=== PATIENT | female | born 1995 | race African-American/Black ===

== ENCOUNTER 2016-11-07 19:16 | Emergency (ER) | payer MEDICAID ==
[~2016-11-07] VITALS: Ht 162.6 cm; Wt 79.4 kg
[~2016-11-07 19:16] MED LIST: IRONTAB35
[2016-11-07 19:20] VITALS: BP 120/82
[2016-11-07] MEDS ORDERED: ACETAMINOPHEN 325 MG TAB PO ONE (19:45)
[2016-11-07 20:26] LABS: Basophils # (auto) 0 uL; Basophils % (auto) 0.3 % (0.0-2.0); Eosinophils # (auto) 0 uL; Eosinophils % (auto) 0.3 % (0.0-7.0); Hematocrit 34.2 % (36.0-46.0); Hemoglobin 11.7 g/dL (12.2-16.2); Lymphocytes # (auto) 1.5 uL; Lymphocytes % (auto) 12.2 % (10.0-50.0); Mean Corpuscular Hemoglobin 29.9 pg (28.0-32.0); Mean Corpuscular Hgb Conc. 34.2 g/dL (32.0-36.0); Mean Corpuscular Volume 87.3 fL (80.0-100.0); Mean Platelet Volume 8.9 fL (7.4-10.4); Monocytes # (auto) 0.9 uL; Monocytes % (auto) 7.5 % (0.0-12.0); Neutrophils # (auto) 9.6 uL; Neutrophils % (auto) 79.7 % (37.0-80.0); Platelet Count (auto) 248 10^3/uL (140-450); Red Cell Distribution Width 13.1 % (11.6-16.0); White Blood Cell 12.1 10^3/uL (4.4-10.8)
[2016-11-07 20:51] LABS: Albumin 3.1 g/dL (3.4-5.0); BUN/Creatinine Ratio 7.1; Calcium 8.8 mg/dL (8.5-10.1); Potassium 3.8 mmol/L (3.5-5.1)
[2016-11-07 20:55] LABS: Bilirubin, Total 0.4 mg/dL (0.2-1.0); Total Protein 7.6 g/dL (6.4-8.2)
[2016-11-07] MEDS ORDERED: methylPREDNISolone SOD SUCC 125 MG/2 ML VL IM ONE (21:00)
[2016-11-07] MEDS ORDERED: cefTRIAXone SOD 1,000 MG VL IM ONE (21:00)
== END 2016-11-07 21:43 | disposition home or self-care (01) ==
LOC: ER 19:20
DX: J20.9 Acute bronchitis, unspecified (principal); F17.210 Nicotine dependence, cigarettes, uncomplicated; F12.10 Cannabis abuse, uncomplicated; D25.9 Leiomyoma of uterus, unspecified
CPT/HCPCS: 36415; 80053; 82150; 83690; 85025; 96372; 99284; J0696; J2930

== ENCOUNTER 2016-12-27 07:16 | Emergency (ER) | payer MEDICAID ==
[~2016-12-27] VITALS: Ht 167.6 cm; Wt 81.6 kg
[2016-12-27] MEDS ORDERED: HYDROmorphone HCL 2 MG/ML VL IM ONE (07:45)
[2016-12-27] MEDS ORDERED: ONDANSETRON HCL 4 MG/2 ML VIAL IM ONE (07:45)
[2016-12-27 08:16] LABS: Urine Bilirubin Negative (Negative); Urine Color Yellow (Yellow); Urine Glucose Normal (Normal); Urine Ketone Negative (Negative); Urine Nitrite Negative (Negative); Urine RBC 95 /hpf (0 - 4); Urine Squamous Epithelial Cell FEW /hpf (<5); Urine Urobilinogen Normal (Negative); Urine pH 5.5 (5.0-8.0)
[2016-12-27 08:17] LABS: Urine Blood 3+ /uL (Negative)
[2016-12-27 08:56] VITALS: BP 112/66
== END 2016-12-27 08:57 | disposition home or self-care (01) ==
LOC: ER 07:16
DX: N39.0 Urinary tract infection, site not specified (principal); D25.1 Intramural leiomyoma of uterus; F17.210 Nicotine dependence, cigarettes, uncomplicated; F12.10 Cannabis abuse, uncomplicated
CPT/HCPCS: 81001; 81025; 96372; 99284; J1170; J2405

== ENCOUNTER 2018-12-23 11:45 | Emergency (ER) | payer MEDICAID ==
[~2018-12-23] VITALS: Ht 165.1 cm; Wt 83.9 kg
[2018-12-23 11:57] VITALS: BP 115/68
[2018-12-23 12:34] LABS: Urine Bacteria NONE SEEN /hpf (None Seen); Urine Blood 2+ /uL (Negative); Urine Mucus FEW (None Seen); Urine Specific Gravity 1.022 (1.001-1.035); Urine WBC 18 /hpf (0 - 5)
[2018-12-23] MEDS ORDERED: KETOROLAC TROMETH 60MG/2ML VIAL IM ONE (14:15)
== END 2018-12-23 17:31 | disposition home or self-care (01) ==
LOC: ER 11:55
DX: N39.0 Urinary tract infection, site not specified (principal); F17.210 Nicotine dependence, cigarettes, uncomplicated; F12.90 Cannabis use, unspecified, uncomplicated
CPT/HCPCS: 74176; 81001; 81025; 96372; 99284; J1885

== ENCOUNTER 2023-02-06 08:39 | Emergency (ER) | payer MEDICAID ==
[~2023-02-06] VITALS: Ht 165.1 cm; Wt 95.4 kg
[2023-02-06 09:33] LABS: Urine Bacteria FEW /hpf (None Seen); Urine Blood Negative /uL (Negative); Urine Clarity Clear (Clear); Urine Color Yellow (Yellow); Urine Mucus FEW (None Seen); Urine Protein, UAD Negative (Negative); Urine Specific Gravity 1.017 (1.001-1.035); Urine Urobilinogen Normal (Negative); Urine WBC 1 /hpf (0 - 5); Urine pH 5.5 (5.0-8.0)
[2023-02-06 09:42] LABS: Basophils # (auto) 0.2 10 ^3/uL (0-0.2); Basophils % (auto) 1.4 % (0.0-2.0); Eosinophils # (auto) 0.1 10 ^3/uL (0-0.8); Eosinophils % (auto) 0.8 % (0.0-7.0); Hematocrit 36.7 % (36.0-46.0); Hemoglobin 12.4 g/dL (12.2-16.2); Lymphocytes # (auto) 1.6 10 ^3/uL (0.4-5.4); Mean Corpuscular Hemoglobin 30.2 pg (28.0-32.0); Mean Corpuscular Hgb Conc. 33.7 g/dL (32.0-36.0); Mean Corpuscular Volume 89.5 fL (80.0-100.0); Monocytes # (auto) 0.4 10 ^3/uL (0-1.3); Monocytes % (auto) 3.3 % (0.0-12.0); Neutrophils % (auto) 82.5 % (37.0-80.0); Nucleated Red Blood Cells % 0.1 %; Red Cell Distribution Width 13.2 % (11.8-14.3); White Blood Cell 13.4 10^3/uL (4.4-10.8)
[2023-02-06 10:20] LABS: Alanine Aminotransferase 17 U/L (7-40); Albumin 4.3 g/dL (3.2-4.8); Alkaline Phosphatase 87 U/L (46-116); Amylase 65 U/L (30-118); Anion Gap 5.4 (5-15); Aspartate Aminotransferase 8 U/L (13-40); BUN/Creatinine Ratio 10.4 (10.0-20.0); Bilirubin, Total 0.3 mg/dL (0.2-1.0); Blood Urea Nitrogen 10 mg/dL (9-23); Calcium 9.2 mg/dL (8.5-10.1); Carbon Dioxide 24.6 mmol/L (20-30); Chloride 109 mmol/L (98-107); Glucose 133 mg/dL (74-106); Lipase 36 U/L (12-53); Potassium 3.8 mmol/L (3.5-5.1); Sodium 139 mmol/L (136-145); Total Protein 7.1 g/dL (5.7-8.2)
[2023-02-06] MEDS ORDERED: CEPH250C PO (11:42)
[2023-02-06 12:48] VITALS: BP 129/93; PULSE 74; RESP 18; TEMP 98.9; O2SAT 98
== END 2023-02-06 12:49 | disposition home or self-care (01) ==
LOC: ER 08:39
DX: R10.9 Unspecified abdominal pain (principal); R10.2 Pelvic and perineal pain; R11.2 Nausea with vomiting, unspecified; F17.210 Nicotine dependence, cigarettes, uncomplicated; Z86.2 Personal history of diseases of the blood and blood-forming organs and certain disorders involving the immune mechanism; Z79.899 Other long term (current) drug therapy
CPT/HCPCS: 36415; 74176; 80053; 81001; 82150; 83690; 84702; 85025

== ENCOUNTER 2024-04-19 09:22 | Emergency (ER) | payer MEDICAID ==
[~2024-04-19] VITALS: Ht 165.1 cm; Wt 86.5 kg
[~2024-04-19 09:22] MED LIST changes: +CEPH250C PO
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
[2024-04-19] MEDS ORDERED: ACET-1080 PO (10:31)
[2024-04-19] MEDS: ACETAMINOPHEN 500 MG TAB PO ONE (10:37)
[2024-04-19 10:43] VITALS: BP 120/90; PULSE 76; RESP 20; TEMP 98.1; O2SAT 98
== END 2024-04-19 10:44 | disposition home or self-care (01) ==
LOC: ER 09:22
DX: S83.8X1A Sprain of other specified parts of right knee, initial encounter (principal); F17.210 Nicotine dependence, cigarettes, uncomplicated; F15.90 Other stimulant use, unspecified, uncomplicated; Z86.2 Personal history of diseases of the blood and blood-forming organs and certain disorders involving the immune mechanism; Z79.899 Other long term (current) drug therapy; X58.XXXA Exposure to other specified factors, initial encounter; Y93.89 Activity, other specified; Y92.89 Other specified places as the place of occurrence of the external cause; Y99.8 Other external cause status
CPT/HCPCS: 73564

== ENCOUNTER 2024-05-28 07:31 | Emergency (ER) | payer MEDICAID ==
[~2024-05-28] VITALS: Ht 162.6 cm; Wt 99.3 kg
[~2024-05-28 07:31] MED LIST changes: +ACET-1080 PO
[2024-05-28 08:40] VITALS: BP 128/86; PULSE 80; RESP 16; TEMP 97.6; O2SAT 100
[2024-05-28 09:08] LABS: Urine Bacteria FEW /hpf (None Seen); Urine Blood Negative /uL (Negative); Urine Clarity Turbid (Clear); Urine Mucus FEW (None Seen); Urine Protein, UAD TRACE (Negative); Urine Specific Gravity 1.018 (1.001-1.035); Urine Urobilinogen Normal (Negative); Urine WBC 8 /hpf (0 - 5); Urine pH 5.5 (5.0-9.0)
[2024-05-28 09:09] LABS: Urine Color Yellow (Yellow)
--- NOTE | 2024-05-28 09:13 | ED.PDOC ---
GI ASSESSMENT HPI Comments 29 Y F, with PMHX of anemia, presents to the ED with CC of nausea/vomiting. Patient states that she has been nausea and vomiting for 2 days with associated symptoms of cough, and body aches which have persisted for 1 month. Patient relays that she has been using mucienx at home with no relief. Patient states that she suspects but is unsure. Patient denies fever, chills, nasal wr2wsssweut, or headache. Chief Complaint: Nausea/Vomiting Time Seen by MD: 08:10 Primary Care Provider: KUSUM Reviewed Notes: Nurses Notes, Medications, Allergies Allergies: Coded Allergies: NO KNOWN ALLERGIES (Unverified , 07/13/10) Home Meds Active Scripts Acetaminophen (Tylenol 8 Hour Arthritis) 650 Mg Tab, 650 MG PO TID, #30 TAB Prov:NANCY EDUARDO 04/19/24 Cephalexin (KEFLEX CAPSULE) 250 Mg Cp, 500 MG PO TID for 5 Days, #15 BOTTLE Prov:OSCAR ANDERSON MD 02/06/23 Reported Medications [Iron] (IRON) No Conflict Check 07/13/10 Information Source: Patient Mode of Arrival: Ambulatory Timing: Months Duration: Since onset Vomitus: Watery Stool: Watery Severity: Mild Recent: None Recent Hx of: None Pain Location: None Modifying Factors: Nothing Associated sign and symptoms: None Past Medical History PAST MEDICAL HISTORY: Anemia Surgical History: Denies all surgeries BARKER PEELER History: No Pertinent BARKER PEELER History, Uterine Fibroids Family History Family History: Reviewed,noncontributory to illness Social History Smoker: Cigarettes, Greater Than 1 Pack/Day Alcohol: Occasionally Drugs: Marijuana Lives In: Home Constitutional: denies: chills, diaphoresis, fatigue, fever, malaise, sweats, weakness, others EENTM: denies: blurred vision, double vision, ear bleeding, ear discharge, ear drainage, ear pain, ear ringing, eye pain, eye redness, hearing loss, mouth pain, mouth swelling, nasal discharge, nose bleeding, nose congestion, nose pain, photophobia, tearing, throat pain, throat swelling, voice changes, others Respiratory: reports: cough; denies: hemoptysis, orthopnea, SOB at rest, shortness of breath, SOB with excertion, stridor, wheezing, others Cardiovascular: denies: chest pain, dizzy spells, diaphoresis, Dyspnea on exertion, edema, irregular heart beat, left arm pain, lightheadedness, palpitations, PND, syncope, others Gastrointestinal: reports: nausea, vomiting; denies: abdomen distended, abdominal pain, blood streaked bowels, constipated, diarrhea, dysphagia, difficulty swallowing, hematemesis, melena, poor appetite, poor fluid intake, rectal bleeding, rectal pain, others Genitourinary: denies: abnormal vagina bleeding, burning, dyspareunia, dysuria, flank pain, frequency, hematuria, incontinence, pain, , vagina discharge, urgency, others Neurological: denies: dizziness, fainting, headache, left sided numbness, left sided weakness, numbness, paresthesia, pre-existing deficit, right sided numbness, right sided weakness, seizure, speech problems, tingling, tremors, weakness, others Musculoskeletal: reports: back pain, others (body aches ); denies: gout, joint pain, joint swelling, muscle pain, muscle stiffness, neck pain Integumetry: denies: bruises, change in color, change in hair/nails, dryness, laceration, lesions, lumps, rash, wounds, others Allergic/Immunocompromised: denies: Difficulty Healing, Frequent Infections, Hives, Itching, others Hematologic/Lymphatic: denies: anemia, blood clots, easy bleeding, easy bruising, swollen glands, others Endocrine: denies: excessive hunger, excessive sweating, excessive thirst, excessive urination, flushing, intolerance to cold, intolerance to heat, u nexplained weight gain, unexplained weight loss, others Psychiatric: denies: anxiety, bipolar disorder, depression, hopeless, panic disorder, schizophrenia, sleepless, suicidal, others All Other Systems: Reviewed and Negative Physical Exam General Appearance: No Apparent Distress, Normal HEENT: Normal ENT Inspection, Pharynx Normal, TMs Normal Neck: Full Range of Motion, Non-Tender, Normal, Normal Inspection Respiratory: Chest Non-Tender, Lungs Clear, No Accessory Muscle Use, No Respiratory Distress, Normal Breath Sounds Cardiovascular: No Edema, No JVD, No Murmur, No Gallop, Normal Peripheral P ulses, Regular Rate/Rhythm Breast Exam: Deferred Gastrointestinal: No Organomegaly, Non Tender, No Pulsatile Mass, Normal Bowel Sounds, Soft Genitalia: Deferred Pelvic: Deferred Rectal: Deferred Extremities: No calf tenderness, Normal capillary refill, Normal inspection, Normal range of motion, Non-tender, No pedal edema Musculoskeletal : Apperance: Normal Neurologic: Alert, gage maker II-XII nml as Tested, No Motor Deficits, Normal Affect, Normal Mood, No Sensory Deficits Cerebellar Function: Normal Reflexes: Normal Skin: Dry, Normal Color, Warm Lymphatic: No Adenopathy Was a procedure done? Was a procedure done?: No GI differential Dx Differential Diagnosis: Gastritis/PUD, Gastroenteritis, Electrolyte Imbalance, Food Poisoning, , Bacterial, Viral X-Ray, Labs, Meds, VS Vital Signs Date Time Temp Pulse Resp B/P (MAP) Pulse Ox O2 Delivery O2 Flow Rate FiO2 05/28/24 08:40 97.6 80 16 128/86 (100) 100 97.6 05/28/24 07:37 98.0 94 18 118/74 (89) 99 Lab Test 05/28/24 09:37 05/28/24 07:45 Range/Units White Blood Count 15.9 H 4.4-10.8 10^3/uL Red Blood Count 4.43 4.0-5.20 10^6/uL Hemoglobin 13.4 12.2-16.2 g/dL Hematocrit 39.7 36.0-46.0 % Mean Corpuscular Volume 89.6 80.0-100.0 fL Mean Corpuscular Hemoglobin 30.3 28.0-32.0 pg Mean Corpuscular Hemoglobin Concent 33.8 32.0-36.0 g/dL Red Cell Distribution Width 13.1 11.8-14.3 % Platelet Count 357 140-450 10^3/uL Mean Platelet Volume 8.4 6.9-10.8 fL Neutrophils (%) (Auto) 74.6 37.0-80.0 % Lymphocytes (%) (Auto) 19.3 10.0-50.0 % Monocytes (%) (Auto) 4.8 0.0-12.0 % Eosinophils (%) (Auto) 0.7 0.0-7.0 % Basophils (%) (Auto) 0.6 0.0-2.0 % Neutrophils # (Auto) 11.9 H 1.6-8.6 10 ^3/uL Lymphocytes # (Auto) 3.1 0.4-5.4 10 ^3/uL Monocytes # (Auto) 0.8 0-1.3 10 ^3/uL Eosinophils # (Auto) 0.1 0-0.8 10 ^3/uL Basophils # (Auto) 0.1 0-0.2 10 ^3/uL Nucleated Red Blood Cells 0.1 % Sodium Level 140 136-145 mmol/L Potassium Level 3.8 3.5-5.1 mmol/L Chloride Level 105 98-107 mmol/L Carbon Dioxide Level 26 20-31 mmol/L Anion Gap 9 5-15 Blood Urea Nitrogen 8 L 9-23 mg/dL Creatinine 1.02 0.550-1.02 mg/dL Glomerular Filtration Rate Calc 76 >90 mL/min BUN/Creatinine Ratio 7.8 L 10.0-20.0 Serum Glucose 100 74-106 mg/dL Calcium Level 10.2 8.7-10.4 mg/dL Urine Color Yellow Yellow Urine Clarity Turbid H Clear Urine pH 5.5 5.0-9.0 Urine Specific [place] 1.018 1.001-1.035 Urine Protein Trace H Negative Urine Ketones Negative Negative Urine Blood Negative Negative /uL Urine Nitrite Negative Negative Urine Bilirubin Negative Negative Urine Urobilinogen Normal Negative mg/dL Urine Leukocyte Esterase Negative Negative /uL Urine RBC 1 0 - 4 /hpf Urine WBC 8 0 - 5 /hpf Urine Squamous Epithelial Cells Mod <5 /hpf Urine Bacteria Few H None Seen /hpf Urine Mucus Few None Seen Urine Glucose Normal Normal mg/dL Urine Test Negative Negative [place] [id number] DIAGNOSTIC IMAGING Diagnostic Imaging Report : [id number] Signed PATIENT: ZOEY REDMAN ACCT: [id number] UNIT: [id number] : 1995 LOC: ER ROOM / BED: / AGE / SEX: 29 / F ADM STATUS: REG ER SERVICE [id number] ORDERING PHYSICIAN: NEEL ROSS MD PROCEDURE(s): CXR2 - CHEST TWO VIEWS ROUTINE REASON: cough ORDER NUMBER(s): [id number], ACCESSION NUMBER(s): [id number] XY CHEST TWO VIEWS ROUTINE CLINICAL HISTORY: cough COMPARISON: None TECHNIQUE: Frontal and lateral view of the chest was obtained FINDINGS: Lines and Tubes: None Lungs: No focal consolidation. Pleura: No effusion. No pneumothorax. Cardiomediastinal contours: Unremarkable Bones: No acute osseous abnormality. IMPRESSION: 1. No acute cardiopulmonary disease. ATED BY: YAMEL CALIX MD DICTATED DATE/TIME: 05/28/24942 SIGNED BY: YAMEL CALIX MD SIGNED DATE/TIME: 05/28/24942 CC: Time of 1ST Reevaluation: 08:40 Reevaluation 1ST: Unchanged Patient Education/Counseling: Diagnosis, Treatment Family Education/Counseling: No Family Present Additional Information I reviewed the following notes from patient's past medical encounters: The following tests were ordered, and results were reviewed by me: CXR, UA, TEST URINE, BMP, CBC, COVID 19 MAGDALENA I reviewed and agreed with the following test results read by other providers: CXR I discussed treatment and results with medical personnel and patient. Departure 1 Departure Time of Disposition: 12:42 (Patient with signs concerning for urinary tract infection also with possible viral syndrome) Impression: Primary Impression: Viral syndrome Additional Impression: Acute cystitis Qualified Codes: N30.00 - Acute cystitis without hematuria Disposition: 01 HOME / SELF CARE / HOMELESS Condition: Stable Additional Instructions: You likely have a viral illness and You have a urinary tract infection. You were prescribed antibiotics. Please take as directed. It is important to stay well rested and well hydrated. You can take Tylenol and Motrin as needed for pain and fever. For a sore throat you can drink warm tea with honey. You can take [id number] pseudoephedrine for nasal congestion. He should follow up with your regular doctor within 1 week to ensure you are doing better. If your symptoms worsen or you have any other concerns please return to the emergency room. e-Prescriptions Cefdinir (Cefdinir) 300 Mg Cap 1 CAP PO BID for 7 Days, #14 CAP Prov: NEEL ROSS MD 05/28/24 Discharged With: Self Critical Care Note Critical Care Time?: No Stability Stability form required: No Heart Score Heart Score: Heart Score Response (Comments) Value History N/A 0 EKG N/A 0 Age N/A 0 Risk Factors N/A 0 Troponin N/A 0 Total 0 I personally scribed for NEEL ROSS MD ([email or web address]) on 05/28/24 at 09:13. Electronically submitted by Beulah Morrow ([email or web address]). I personally scribed for NEEL ROSS MD ([email or web address]) on 05/28/24 at 10:12. Electronically submitted by Beulah Morrow ([email or web address]). I personally scribed for NEEL ROSS MD ([email or web address]) on 05/28/24 at 10:15. Electronically submitted by Beulah Morrow [email or web address]). NEEL ROSS MD May 28, 2024 09:13
[2024-05-28] MEDS ORDERED: ONDANSETRON ODT 4 MG TAB PO ONE (09:30)
--- NOTE | 2024-05-28 09:46 | DVH ---
XY CHEST TWO VIEWS ROUTINE CLINICAL HISTORY: cough COMPARISON: None TECHNIQUE: Frontal and lateral view of the chest was obtained FINDINGS: Lines and Tubes: None Lungs: No focal consolidation. Pleura: No effusion. No pneumothorax. Cardiomediastinal contours: Unremarkable Bones: No acute osseous abnormality. IMPRESSION: 1. No acute cardiopulmonary disease.
[2024-05-28 09:59] LABS: Basophils # (auto) 0.1 10 ^3/uL (0-0.2); Basophils % (auto) 0.6 % (0.0-2.0); Eosinophils # (auto) 0.1 10 ^3/uL (0-0.8); Eosinophils % (auto) 0.7 % (0.0-7.0); Hematocrit 39.7 % (36.0-46.0); Hemoglobin 13.4 g/dL (12.2-16.2); Lymphocytes # (auto) 3.1 10 ^3/uL (0.4-5.4); Lymphocytes % (auto) 19.3 % (10.0-50.0); Mean Corpuscular Hemoglobin 30.3 pg (28.0-32.0); Mean Corpuscular Hgb Conc. 33.8 g/dL (32.0-36.0); Mean Corpuscular Volume 89.6 fL (80.0-100.0); Monocytes # (auto) 0.8 10 ^3/uL (0-1.3); Monocytes % (auto) 4.8 % (0.0-12.0); Neutrophils # (auto) 11.9 10 ^3/uL (1.6-8.6); Neutrophils % (auto) 74.6 % (37.0-80.0); Nucleated Red Blood Cells % 0.1 %; Platelet Count (auto) 357 10^3/uL (140-450); Red Blood Cells 4.43 10^6/uL (4.0-5.20); Red Cell Distribution Width 13.1 % (11.8-14.3); White Blood Cell 15.9 10^3/uL (4.4-10.8)
[2024-05-28 10:16] LABS: Chloride 105 mmol/L (98-107); Potassium 3.8 mmol/L (3.5-5.1); Sodium 140 mmol/L (136-145)
[2024-05-28 10:17] LABS: Anion Gap 9 (5-15); Calcium 10.2 mg/dL (8.7-10.4); Carbon Dioxide 26 mmol/L (20-31)
[2024-05-28 10:22] LABS: BUN/Creatinine Ratio 7.8 (10.0-20.0); Glucose 100 mg/dL (74-106)
[2024-05-28 10:23] LABS: Blood Urea Nitrogen 8 mg/dL (9-23)
[2024-05-28] MEDS ORDERED: CEFD300C2 PO (12:44)
== END 2024-05-28 14:25 | disposition home or self-care (01) ==
LOC: ER 07:31
DX: N30.00 Acute cystitis without hematuria (principal); B34.9 Viral infection, unspecified; F17.210 Nicotine dependence, cigarettes, uncomplicated; Z32.02 Encounter for pregnancy test, result negative
CPT/HCPCS: 36415; 71046; 80048; 81001; 81025; 85025

== ENCOUNTER 2024-06-18 10:18 | Emergency (ER) | payer MEDICAID ==
[~2024-06-18] VITALS: Ht 167.6 cm; Wt 68.2 kg
[~2024-06-18 10:18] MED LIST changes: +CEFD300C2 PO
[2024-06-18 10:24] VITALS: BP 150/100; PULSE 75; RESP 24; O2SAT 99
[2024-06-18] MEDS ORDERED: ONDANSETRON HCL 4 MG/2 ML VIAL IV ONE (10:45)
[2024-06-18] MEDS ORDERED: MORPHINE SULFATE 4 MG/ML SYR/VIAL IV ONE (10:45)
== END 2024-06-18 10:55 | disposition left against medical advice (07) ==
LOC: EDBD 10:18 → ER 10:18
DX: R10.11 Right upper quadrant pain (principal); Z53.21 Procedure and treatment not carried out due to patient leaving prior to being seen by health care provider